=== PATIENT | male | born 1970 | race Caucasian/White ===

== ENCOUNTER 2018-03-09 05:39 | Day surgery (SDC) | payer OTHER ==
[2018-03-09] MEDS ORDERED: ceFAZolin 2 GM/DEXTROSE 100 ML IV ONE (05:51)
[2018-03-09] MEDS ORDERED: DEXAMETHASONE 4 MG/ML VIAL IVP ONE (05:51)
[2018-03-09] MEDS ORDERED: LR 1,000 ML IV ONE (05:52)
--- NOTE | 2018-03-09 06:38 | PDHPUP ---
History & Physical Update H&P update statement: This history and physical update is based on an assessment of the patient which was completed after admission or registration (within 24 hours), but prior to the surgery/procedure. H&P update: H&P reviewed & patient examined, no change in patient's condition since H&P completed
[2018-03-09] MEDS ORDERED: BUPIVACAINE/EPI 0.5% 30 ML SDV ONE (06:52)
[2018-03-09] MEDS ORDERED: LIDO/EPI 2%** Not for Epidural 20 ML MDV ONE (06:52)
[2018-03-09] MEDS ORDERED: CHLORHEXIDINE GLUCONATE 15 ML UDL ONE (06:53)
[2018-03-09] MEDS ORDERED: MIDAZOLAM 2 MG/2 ML VIAL IVP ONE (07:07)
[2018-03-09] MEDS ORDERED: PROPOFOL 200 MG/20 ML VIAL ONE (07:12)
[2018-03-09] MEDS ORDERED: fentaNYL 100 MCG/2 ML INJ ONE (07:16)
--- NOTE | 2018-03-09 07:18 | PDANEPAE ---
ANE Past Medical History - Cardiovascular History Hx Hypertension: No Hx Arrhythmias: No Hx Chest Pain: No Hx Coronary Artery / Peripheral Vascular Disease: No Hx CHF / Valvular Disease: No Hx Palpitations: No - Pulmonary History Hx COPD: No Hx Asthma/Reactive Airway Disease: No Hx Recent Upper Respiratory Infection: No Hx Oxygen in Use at Home: No Hx Sleep Apnea: No Sleep Apnea Screening Result - Last Documented: Negative - Neurologic History Hx Cerebrovascular Accident: No Hx Seizures: No Hx Dementia: No - Endocrine History Hx Diabetes: Yes Hypothyroid: No Hyperthyroid: No Obesity: moderate Endocrine History Comment: type 2- on metformin - Renal History Hx Renal Disorders: No - Liver History Hx Hepatic Disorders: No - Neurological & Psychiatric Hx Hx Neurological and Psychiatric Disorders: No - Cancer History Hx Cancer: No - Congenital Disorder History Hx Congenital Disorders: No - GI History GERD: no Hx Gastrointestinal Disorders: Yes Gastrointestinal History Comment: hx of reflux 20 yrs ago- no symptoms since - Other Health History Other Health History: wear glasses. arthritis - Chronic Pain History Chronic Pain: Yes (bilateral knees) - Surgical History Prior Surgeries: arthroscopic knee surgeries bilaterally ANE Review of Systems Review of systems is: negative Review of Systems: - Exercise capacity Exercise capacity: >=4 METS METS (RN): 4 METS ANE Patient History - Allergies Allergies/Adverse Reactions: No Known Allergies Allergy (Verified 03/06/18 17:10) - Home Medications Home medications: home medication list seen and reviewed Home Medications: Metformin HCl BID 03/06/18 [Last Taken 03/08/18] Percocet 5-325 mg Tablet PRN 03/06/18 [Last Taken 03/04/18] - NPO status NPO Status: no food or drink >8 hours NPO Since - Liquids (Date): 03/08/18 NPO Since - Liquids (Time): 21:00 NPO Since - Solids (Date): 03/08/18 NPO Since - Solids (Time): 18:00 - Anes Hx Anes Hx: no prior problems - Smoking Hx Smoking Status: Never smoked - Family Anes Hx Family Anes Hx: none Family Hx Anesthesia Complications: grandfather- very sensitive to anesthesia ANE Labs/Vital Signs - Labs Result Diagrams: 03/09/18 06:05 - Vital Signs Vital Signs: reviewed preoperatively; see RN documention for details Blood Pressure: 141/84 Heart Rate: 76 Respiratory Rate: 16 O2 Sat (%): 95 Height: 187.96 cm Weight: 120.202 kg ANE Physical Exam - Airway Neck exam: FROM Mallampati Score: Class 2 Mouth exam: normal dental/mouth exam - Pulmonary Pulmonary: no respiratory distress - Cardiovascular Cardiovascular: regular rate and rhythym - ASA Status ASA Status: II ANE Anesthesia Plan Anesthesia Plan: general endotracheal anesthesia
[2018-03-09] MEDS ORDERED: ROCURONIUM 50 MG/5 ML VIAL ONE (07:34)
[2018-03-09] MEDS ORDERED: LIDOCAINE 2% 5 ML SDV ONE (07:34)
[2018-03-09] MEDS ORDERED: ONDANSETRON 4 MG/2 ML VIAL ONE (07:34)
[2018-03-09] MEDS ORDERED: DEXAMETHASONE 4 MG/ML VIAL ONE (07:34)
[2018-03-09] MEDS ORDERED: SUGAMMADEX SODIUM 200 MG/2 ML VIAL IVP ONE (08:11)
--- NOTE | 2018-03-09 08:25 | POSTOPPROG ---
Post Op Note Date of Operation: 03/09/18 Surgeon: Luz Loja Anesthesia: GET(General Endotracheal) Pre-op Diagnosis: Infected #17, impacted Post-op Diagnosis: Infected #17, impacted Indication: Odontogenic infection Procedure: Extraction #17 Findings: ANABELL exposed on buccal, thicken buccal periosteum Inf/Abcess present in the surg proc area at time of surgery?: Yes Depth: Superfical (Skin SQ) EBL: Minimal Total fluids administered: 1000mL Complications: None
[2018-03-09 10:53] VITALS: BP 132/90
--- NOTE | 2018-03-11 16:00 | SUROPNOTE ---
[facility] Operative Report - Surgery Pre-Operative Diagnosis: Impacted teeth #17 with odontogenic infection Post-operative Diagnosis: Impacted teeth #17 with odontogenic infection Procedure: Surgical Extraction teeth #17 Surgeon: Luz Loja DDS Preparation Department Supervisor: N/A Anesthesia: GETA with local anesthesia of Lidocaine 2% with 1:100k epinephrine and Marcaine 0.5% with 1:200k epinephrine Complications: None Fluids: 1000mL Crystalloid Specimens: None EBL: minimal Operative Indications: Patient reported with 10 weeks pain lower left posterior after coronectomy #17. Intermittent paresthesia and dysesthesia lower left lip Procedure: Patient was met in pre-operative holding. Questions sought and answered and consent signed. Patient marked. Patient brought to operating suite by OR staff. Monitored deemed to be working appropriately and general anesthsia induced via orotracheal intubation. Patient eyes covered by anesthesia. Time out completed. Throat packed placed, mouth cleaned and local anesthetic given via left ANABELL/long buccal blocks. Patient prepped and draped in [facility] sterile fashion. Bite block placed. 15 blade used to make distobuccal incision to avoid lingual nerve. Reflected buccal full thickness mucoperiosteal flap exposing gross granulation tissue and inferior alveolar nerve buccal to root tips #17. Removed tooth with HP/fissure bur and copious irrigation and forceps. Curetted socket well. Irrigated socket and flap well with NS. Covered inferior alveolar nerve with EpiFix amniotic membrane. Placed allogenic putty to alveolar crest and used cut EpiFix to size to cover buccal and occlusal surface of graft material subperiosteally. Primary closure 3-0 silk suture. Mouth cleaned, throat pack removed with suction. Bite block removed. Face cleaned and dried with NS. Patient awoke in operating suite and extubated. Transferred to PACU where he recovered uneventfully. Patient was discharged home to have a follow up in one week at [facility].
== END 2018-03-09 10:53 | disposition home or self-care (01) ==
LOC: FSGY 05:39
PROVIDERS: ATTEND Dentist General Practice
PROC: 0CDXXZ0 Extraction of Lower Tooth, Single, External Approach (ICD-10-PCS; principal; 2018-03-09 07:15)
DX: K01.1 Impacted teeth (principal); K04.7 Periapical abscess without sinus; E11.9 Type 2 diabetes mellitus without complications
CPT/HCPCS: C1713; J0690; J1100; J2250; J2405; J2704; J3010; Q4131